=== PATIENT | male | born 1955 | race Caucasian/White ===

== ENCOUNTER → 2021-08-26 | Outpatient (CLI) | payer BC ==
--- NOTE | 2021-08-26 16:53 | Diagnostic Imaging Report ---
INDICATION: Multiple myeloma. TECHNIQUE/COMPARISON: The whole-body bone scan was performed in the routine fashion with 26.4 mCi of technetium 99m MDP given intravenously. There is no prior study for comparison. FINDINGS: There are no focal areas of abnormal uptake throughout the skeleton except for some mild degenerative change of both knees. Note that myelomatous lesions may not be detected if there is not significant osteoblastic activity. IMPRESSION: Unremarkable whole-body bone scan except for some mild degenerative change of both knees. Note that a negative bone scan does not rule out myelomatous lesions since some lesions may not evoke osteoblastic activity. Dictated by: Dictated on workstation # [id number]
== END ==
LOC: CARD 11:00
PROVIDERS: ATTEND Internal Medicine
DX: C90.00 Multiple myeloma not having achieved remission (principal); M17.0 Bilateral primary osteoarthritis of knee
CPT/HCPCS: 78306; A9503

== ENCOUNTER → 2021-09-05 | Outpatient (CLI) | payer BC ==
[~2021-09-05] VITALS: Ht 167.7 cm; Wt 84.1 kg
[2021-09-05] VITALS (10 sets, daily range): BP systolic 149–174; BP diastolic 72–82
[~2021-09-05] MED LIST: AMLO-251 PO; HYDROcodone/APAP 5 MG/325 MG (LORTAB) TAB PO PRN; LIDOCAINE 1% INJ 50 ML (XYLOCAINE) VIAL IJ ONE; MIDAZOLAM 2 MG/2 ML (VERSED) VIAL INJ ONE; NS IV 1000 ML 1,000 ML IV SCH; OMEP40CA6 PO; PRAZ2CAP2 PO; fentaNYL INJ 100 MCG/2 ML AMP INJ ONE
[2021-09-05 10:23] LABS: HEMATOCRIT 34 % (40-54); HEMOGLOBIN 9.1 g/dL (13.3-17.7); MEAN CORPUSCULAR HEMOGLOBIN 20 pg (25-34); MEAN CORPUSCULAR HGB CONC 27 g/dL (32-36); MEAN CORPUSCULAR VOLUME 74 fL (80-99); MEAN PLATELET VOLUME 9.3 fL (9.0-12.2); PLATELET COUNT 376 10^3/uL (130-400); WHITE BLOOD COUNT 8.3 10^3/uL (4.3-11.0)
[2021-09-05 10:36] LABS: INR 1.3 (0.8-1.4); PROTHROMBIN TIME PATIENT 16.5 SEC (12.2-14.7)
--- NOTE | 2021-09-05 12:09 | Pre-Op Note & Conscious Sedat ---
Pre-Operative Progress Note H&P Reviewed The H&P was reviewed, patient examined and no changes noted. Date H&P Reviewed: Sep 05, 2021 Time H&P Reviewed: 11:00 Pre-Op Diagnosis: renal mass Conscious Sedation Pre-Proced Time 11:00 ASA Score 2 For ASA 3 and 4: Consider anesthesia and medical clearance. Also, for patients with a history of failed moderate sedation consider anesthesia. Airway Lungs Heart ASA score ASA 1: a normal healthy patient ASA 2: a patient with a mild systemic disease (mid diabetes, controlled hypertension, obesity ASA 3: a patient with a severe systemic disease that limits activity (angina, COPD, prior Myocardial infarction) ASA 4: a patient with an incapacitating disease that is a constant threat to life (CHF, renal failure) ASA 5: a moribund patient not expected to survive 24 hrs. (ruptured aneurysm) ASA 6: a declared brain- patient whose organs are being harvested. For emergent operations, add the letter E after the classification Mallampati Classification Grade 2 Sedation Plan Analgesia, Amnesia, Plan communicated to team members, Discussed options with patient/fam, Discussed risks with patient/fam The patient is an appropriate candidate to undergo the planned procedure, sedation, and anesthesia. The patient immediately re-assessed prior to indication. IRLANDA HOANG MD Sep 05, 2021 12:09
--- NOTE | 2021-09-05 12:45 | Diagnostic Imaging Report ---
INDICATION: Left renal mass. Patient presents for CT-guided biopsy. TECHNIQUE: All CT scans use one or more of the following dose optimizing techniques: automated exposure control, MA and/or KvP adjustment based on patient size and exam type or iterative reconstruction. FINDINGS: Patient was brought to the CT suite, placed on table in the prone position. Axial imaging through the abdomen was performed to evaluate appropriate entry site. The lower left posterior abdomen was prepped and draped in the usual sterile fashion. Small amount of 1% lidocaine was utilized for local anesthesia. Procedure was performed utilizing conscious sedation with radiology nursing and constant patient monitoring. Patient was given a total of 50 mg of fentanyl intravenously and 1 mg of Versed intravenously. Total procedure time was 9 minutes. 18-gauge coaxial Temno needle was advanced and placed within the solid lesion in the left renal fossa. Three core biopsies were obtained. Needle was removed. Hemostasis was obtained using manual compression. Follow-up imaging shows no complicating features. IMPRESSION: Successful CT-guided core biopsy of the large mass in the left renal fossa, utilizing conscious sedation. Pathology results are currently pending. Dictated by: Dictated on workstation # [id number]
== END ==
LOC: SDC 09:50
PROVIDERS: ATTEND Internal Medicine Hematology & Oncology
DX: N28.89 Other specified disorders of kidney and ureter (principal)
CPT/HCPCS: 36415; 77012; 85027; 85610; 85730; 99156

== ENCOUNTER 2022-11-28 18:05 | Emergency (ER) | payer BC ==
[~2022-11-28] VITALS: Ht 167 cm; Wt 68.0 kg
[~2022-11-28 18:05] MED LIST changes: -HYDROcodone/APAP 5 MG/325 MG (LORTAB) TAB PO PRN; -LIDOCAINE 1% INJ 50 ML (XYLOCAINE) VIAL IJ ONE; -MIDAZOLAM 2 MG/2 ML (VERSED) VIAL INJ ONE; -NS IV 1000 ML 1,000 ML IV SCH; -fentaNYL INJ 100 MCG/2 ML AMP INJ ONE
[2022-11-28 18:42] LABS: BASOPHILS % (AUTO) 0 % (0-10); EOSINOPHILS % (AUTO) 0 % (0-10); HEMATOCRIT 46 % (40-54); HEMOGLOBIN 12.5 g/dL (13.3-17.7); LYMPHOCYTES # (AUTO) 0.6 10^3/uL (1.0-4.0); LYMPHOCYTES % (AUTO) 9 % (12-44); MEAN CORPUSCULAR HEMOGLOBIN 19 pg (25-34); MEAN CORPUSCULAR HGB CONC 27 g/dL (32-36); MEAN CORPUSCULAR VOLUME 71 fL (80-99); MEAN PLATELET VOLUME 8.9 fL (9.0-12.2); MONOCYTES # (AUTO) 0.7 10^3/uL (0.0-1.0); MONOCYTES % (AUTO) 11 % (0-12); NEUTROPHILS # (AUTO) 5.3 10^3/uL (1.8-7.8); NEUTROPHILS % (AUTO) 78 % (42-75); PLATELET COUNT 343 10^3/uL (130-400); WHITE BLOOD COUNT 6.8 10^3/uL (4.3-11.0)
[2022-11-28 18:49] LABS: ALBUMIN 2.9 GM/DL (3.2-4.5)
[2022-11-28 18:50] LABS: POTASSIUM 4.9 MMOL/L (3.6-5.0)
[2022-11-28 18:51] LABS: CALCIUM 10.4 MG/DL (8.5-10.1)
[2022-11-28 18:52] LABS: TOTAL PROTEIN 7.3 GM/DL (6.4-8.2)
[2022-11-28 18:54] LABS: BILIRUBIN,URINE NEGATIVE (NEGATIVE); CLARITY,URINE CLEAR; COLOR,URINE YELLOW; GLUCOSE, URINE (UA) 3+ (NEGATIVE); KETONES,URINE NEGATIVE (NEGATIVE); LEUKOCYTE ESTERASE ,URINE NEGATIVE (NEGATIVE); NITRITE,URINE NEGATIVE (NEGATIVE); PH,URINE 5.5 (5-9); PROTEIN,URINE 1+ (NEGATIVE)
[2022-11-28 18:54] LABS: BILIRUBIN,TOTAL 0.4 MG/DL (0.1-1.0)
[2022-11-28 18:56] LABS: CREATININE SERUM 1.83 MG/DL (0.60-1.30)
[2022-11-28 18:59] LABS: MAGNESIUM 2.3 MG/DL (1.6-2.4)
[2022-11-28 19:20] LABS: AMORPHOUS SEDIMENT,UR MOD AMOR URATES /LPF; BACTERIA,URINE NEGATIVE /HPF
[2022-11-28 19:20] LABS: FREE T4 (FREE THYROXINE) 0.92 NG/DL (0.70-1.48)
--- NOTE | 2022-11-28 20:20 | Diagnostic Imaging Report ---
INDICATION: Generalized weakness and difficulty ambulating in patient with renal cancer. EXAMINATION: AP view of the chest was obtained. FINDINGS: There is elevation of the right hemidiaphragm with colon interposed between the liver and the right diaphragm. No pneumothorax, consolidation or pleural fluid is seen. Sclerotic focus in the left humeral head may represent a bone island. IMPRESSION: Elevated right hemidiaphragm resulting in volume loss of right lung. No definite acute abnormality is seen. Dictated by: Dictated on workstation # [id number]
--- NOTE | 2022-11-28 20:44 | ED General ---
General Chief Complaint: General Problems/Pain Stated Complaint: WEAKNESS Nursing Triage Note: PT PRESENTS TO ED VIA POV FROM HOME WITH COMPLAINTS OF INCREASED GENERALIZED WEAKNESS OVER THAT PAST 3 WEEKS AGO BUT SIGNIFICANTLY WORSE TODAY WHERE HE WAS UNABLE TO TO AMBULATE AT ALL AND COULD NOT SUPPORT HIS BODY WEIGHT. PT ALSO REPORTS POOR APPETITE Source of Information: Patient, Family Exam Limitations: No Limitations History of Present Illness Date Seen by Provider: November 28, 2022 Time Seen by Provider: 18:23 Initial Comments This 67-year-old gentleman presents to the emergency room accompanied by his with complaints of progressive generalized weakness ongoing for the past few months but particularly exacerbated today and particularly in his legs bilaterally. He is presently being treated for renal cell carcinoma with metastatic disease to the lungs. He takes Keytruda every 3 weeks with his last dose being November 10. Dr. Hurley is his oncologist and Dr. Hernández is his primary care provider. He has a follow-up appointment with Dr. Hurley on Thursday next week. He reports being able to walk 20 or 30 feet to this morning. Now he feels like his legs are going to give out on him with any ambulation. He has had some decreased urine output as well. Patient denies any myalgias or back pain. He has no metastatic disease to the bones that he is aware of. Allergies and Home Medications Allergies Coded Allergies: No Known Drug Allergies (Unverified , 09/05/21) Patient Home Medication List Home Medication List Reviewed: Yes Amlodipine Besylate (Amlodipine Besylate) 10 Mg Tablet, 10 MG PO DAILY, (Reported) Entered as Reported by: THAD NOVOA on 09/05/211006 Omeprazole (Omeprazole) 40 Mg Capsule.dr, 40 MG PO BID, (Reported) Entered as Reported by: THAD NOVOA on 09/05/211006 Prazosin HCl (Prazosin HCl) 2 Mg Capsule, 2 MG PO DAILY, (Reported) Entered as Reported by: THAD NOVOA on 09/05/211006 Review of Systems Review of Systems Constitutional: see HPI, weakness (Generalized but more pronounced in his legs) EENTM: no symptoms reported Respiratory: see HPI Cardiovascular: no symptoms reported Gastrointestinal: no symptoms reported Genitourinary: see HPI Musculoskeletal: see HPI Skin: no symptoms reported Psychiatric/Neurological: See HPI Hematologic/Lymphatic: See HPI Immunological/Allergic: see HPI Past Zcnntpn-Adkfor-Ulxgsg Hx Patient Social History Tobacco Use?: No Substance use?: No Pt feels they are or have been: No Past Medical History Surgery/Hospitalization HX: PMH: HTN, DM2, RENAL CELL CA, CHF, HYPOTHYROIDISM, CHRONIC KIDNEY DISEASE SX: Surgeries: No Respiratory: Yes (Metastases to the lung) Cardiac: Yes (Congestive heart failure, murmur) Hypertension Neurological: No Genitourinary: Yes (Renal cell carcinoma) Renal Failure (CKD) Gastrointestinal: No Musculoskeletal: No Endocrine: Yes Diabetes, Non-Insulin dep HEENT: No Cancer: Yes Kidney (Renal cell carcinoma with metastases to lung) Psychosocial: No Integumentary: No Physical Exam Vital Signs Vital Signs - First Documented 11/28/22 11/28/22 18:14 20:55 Temp 36.6 Pulse 98 Resp 16 B/P (MAP) 134/74 (94) Pulse Ox 96 O2 Delivery Room Air Capillary Refill : Less Than 3 Seconds Height, Weight, BMI Height: '" Weight: lbs. oz. kg; 24.00 BMI Method: General Appearance: No Apparent Distress, WD/WN HEENT: PERRL/EOMI, Normal ENT Inspection, Pharynx Normal Neck: Normal Inspection Respiratory: Lungs Clear, Normal Breath Sounds, No Accessory Muscle Use Cardiovascular: Regular Rate, Rhythm, No Edema, No Murmur Gastrointestinal: Normal Bowel Sounds, Non Tender, Soft; No Distended Extremity: Normal Inspection, No Pedal Edema Neurologic/Psychiatric: Alert, Oriented x3, Normal Mood/Affect, manager universal II-XII Norm as Tested, Other (No focal deficits but there is motor weakness noted in the lower extremities, particularly with dorsiflexion of the feet bilaterally) Skin: Normal Color, Warm/Dry Progress/Results/Core Measures Suspected Sepsis SIRS Temperature: Pulse: 98 Respiratory Rate: 16 Laboratory Tests 11/28/22 18:30: White Blood Count 6.8 Blood Pressure 134 /74 Mean: 94 Laboratory Tests 11/28/22 18:30: Creatinine 1.83H, Platelet Count 343, Total Bilirubin 0.4 Results/Orders Lab Results Laboratory Tests Test 11/28/22 18:30 11/28/22 18:40 Range/Units White Blood Count 6.8 4.3-11.0 10^3/uL Red Blood Count 6.43 H 4.30-5.52 10^6/uL Hemoglobin 12.5 L 13.3-17.7 g/dL Hematocrit 46 40-54 % Mean Corpuscular Volume 71 L 80-99 fL Mean Corpuscular Hemoglobin 19 L 25-34 pg Mean Corpuscular Hemoglobin Concent 27 L 32-36 g/dL Red Cell Distribution Width 20.5 H 10.0-14.5 % Platelet Count 343 130-400 10^3/uL Mean Platelet Volume 8.9 L 9.0-12.2 fL Immature Granulocyte % (Auto) 1 % Neutrophils (%) (Auto) 78 H 42-75 % Lymphocytes (%) (Auto) 9 L 12-44 % Monocytes (%) (Auto) 11 0-12 % Eosinophils (%) (Auto) 0 0-10 % Basophils (%) (Auto) 0 0-10 % Neutrophils # (Auto) 5.3 1.8-7.8 10^3/uL Lymphocytes # (Auto) 0.6 L 1.0-4.0 10^3/uL Monocytes # (Auto) 0.7 0.0-1.0 10^3/uL Eosinophils # (Auto) 0.0 0.0-0.3 10^3/uL Basophils # (Auto) 0.0 0.0-0.1 10^3/uL Immature Granulocyte # (Auto) 0.1 0.0-0.1 10^3/uL Sodium Level 134 L 135-145 MMOL/L Potassium Level 4.9 3.6-5.0 MMOL/L Chloride Level 104 98-107 MMOL/L Carbon Dioxide Level 17 L 21-32 MMOL/L Anion Gap 13 5-14 MMOL/L Blood Urea Nitrogen 42 H 7-18 MG/DL Creatinine 1.83 H 0.60-1.30 MG/DL Estimat Glomerular Filtration Rate 40 BUN/Creatinine Ratio 23 Glucose Level 135 H 70-105 MG/DL Calcium Level 10.4 H 8.5-10.1 MG/DL Corrected Calcium 11.3 H 8.5-10.1 MG/DL Magnesium Level 2.3 1.6-2.4 MG/DL Total Bilirubin 0.4 0.1-1.0 MG/DL Aspartate Amino Transf (AST/SGOT) 12 5-34 U/L Alanine Aminotransferase (ALT/SGPT) 12 0-55 U/L Alkaline Phosphatase 385 H 40-136 U/L Total Creatine Kinase 9 L 30-200 U/L Total Protein 7.3 6.4-8.2 GM/DL Albumin 2.9 L 3.2-4.5 GM/DL Thyroid Stimulating Hormone (TSH) 3.20 0.35-4.94 UIU/ML Free Thyroxine 0.92 0.70-1.48 NG/DL Urine Color YELLOW Urine Clarity CLEAR Urine pH 5.5 5-9 Urine Specific [place] 1.015 L 1.016-1.022 Urine Protein 1+ H NEGATIVE Urine Glucose (UA) 3+ H NEGATIVE Urine Ketones NEGATIVE NEGATIVE Urine Nitrite NEGATIVE NEGATIVE Urine Bilirubin NEGATIVE NEGATIVE Urine Urobilinogen 1.0 < = 1.0 MG/DL Urine Leukocyte Esterase NEGATIVE NEGATIVE Urine RBC (Auto) NEGATIVE NEGATIVE Urine RBC NONE /HPF Urine WBC NONE /HPF Urine Crystals PRESENT H /LPF Urine Amorphous Sediment MOD ABHAY URATES H /LPF Urine Bacteria NEGATIVE /HPF Urine Casts NONE /LPF Urine Mucus NEGATIVE /LPF Urine Culture Indicated NO My Orders Orders - EREN DSOUZA MD Cbc With Automated Diff (11/28/22 18:23) Comprehensive Metabolic Panel (11/28/22 18:23) Magnesium (11/28/22 18:23) Ua Culture If Indicated (11/28/22 18:23) Ed Iv/Invasive Line Start (11/28/22 18:23) Monitor-Rhythm Ecg Trace Only (11/28/22 18:23) Thyroid Stimulating Hormone (11/28/22 18:23) Free T4 (Free Thyroxine) (11/28/22 18:23) Creatine Kinase (11/28/22 19:09) Chest 1 View, Ap/Pa Only (11/28/22 19:37) Vital Signs/I&O 11/28/22 11/28/22 18:14 20:55 Temp 36.6 Pulse 98 79 Resp 16 B/P (MAP) 134/74 (94) 147/71 Pulse Ox 96 95 O2 Delivery Room Air Capillary Refill : Less Than 3 Seconds Blood Pressure Mean: 94 Progress Note : Progress Note Labs were obtained including CBC, CMP, magnesium, CK, TSH, free T4, and urinalysis. These were relatively unremarkable by my interpretation. Alk phos was elevated likely owing to his metastatic disease. Albumin was low likely due to nutritional status from active neoplastic disease. No other acute abnormalities were appreciated. Case was discussed with Dr. Cedeno. If CK was elevated, patient was to receive high-dose steroid therapy. However, CK was not elevated. I discussed disposition with the patient. He believes he is safe and functional at home and would like to be discharged to home. He has a follow-up appoint with Dr. Hurley on Thursday. See discharge instructions for further discussion. Diagnostic Imaging Diagonstic Imaging: Xray Plain Films/CT/US/NM/MRI: chest Comments NAME: SILVIA ROBERTS [facility] REC#: [id number] PT STATUS: DEP ER : 1955 PHYSICIAN: EREN DSOUZA MD ADMIT DATE: 11/28/22/ER Signed Date of Exam:11/28/22 CHEST 1 VIEW, AP/PA ONLY INDICATION: Generalized weakness and difficulty ambulating in patient with renal cancer. EXAMINATION: AP view of the chest was obtained. FINDINGS: There is elevation of the right hemidiaphragm with colon interposed between the liver and the right diaphragm. No pneumothorax, consolidation or pleural fluid is seen. Sclerotic focus in the left humeral head may represent a bone island. IMPRESSION: Elevated right hemidiaphragm resulting in volume loss of right lung. No definite acute abnormality is seen. Dictated by: Dictated on workstation # [id number] Dict: 11/28/222016 Trans: 11/28/222132 [facility] [id number] Interpreted by: REJI MATTHEWS MD Electronically signed by: REJI MATTHEWS MD 11/28/222132 Departure Impression Primary Impression: Generalized weakness Additional Impression: Metastatic renal cell carcinoma to lung Qualified Codes: C78.00 - Secondary malignant neoplasm of unspecified lung; C64.9 - Malignant neoplasm of unspecified kidney, except renal pelvis Disposition: HOME, SELF-CARE Condition: Stable Departure-Patient Inst. Decision time for Depature: 20:49 Referrals: YASMEEN HERNÁNDEZ DO (PCP/Family) Primary Care Physician Patient Instructions: Weakness ED Add. Discharge Instructions: Continue to drink plenty of clear liquids and eat a well-balanced diet. Keep your appointment with Dr. Hurley on Thursday. Discussed your weakness and the possibility of physical therapy for strength and balance conditioning. Use abundance of caution when getting up or ambulating. Request assistance or use an assistive device such as walker or cane if necessary. Return to the emergency room if you have worsening condition. In particular, return to the emergency room if you lose control, motor strength, or feeling in either or both of your legs, or if you have problems controlling bowel or bladder, or develop numbness in the groin. Call with questions or concerns. All discharge instructions reviewed with patient and/or family. Voiced understanding. Copy Copies To 1: CHEMO HURLEY Copies To 2: YASMEEN HERNÁNDEZ JOSHUA T MD November 28, 2022 20:44
[2022-11-28 20:55] VITALS: BP 147/71
== END 2022-11-28 20:55 | disposition home or self-care (01) ==
LOC: EDUNIT# 18:05 → ER 18:07
DX: C64.9 Malignant neoplasm of unspecified kidney, except renal pelvis (principal); C78.00 Secondary malignant neoplasm of unspecified lung; Z79.61 Long term (current) use of immunomodulator; Z28.310 Unvaccinated for COVID-19
CPT/HCPCS: 36415; 71045; 80053; 81000; 82550; 83735; 84439; 84443; 85025; 93041